=== PATIENT | male | born 1945 | race Caucasian/White ===

== ENCOUNTER 2019-07-14 09:43 | Emergency (ER) | payer SELFPAY ==
[~2019-07-14] VITALS: Ht 172.7 cm; Wt 69.9 kg
[2019-07-14 10:55] VITALS: BP 150/78
--- NOTE | 2019-07-14 11:35 | NUR ---
PT CALLED X 1 NO ANSWER
--- NOTE | 2019-07-14 12:11 | NUR ---
PT CALLED FOR ROOM, NO ANSWER X 3
== END 2019-07-14 12:13 | disposition home or self-care (01) ==
LOC: ED 12:02
DX: F03.90 Unspecified dementia, unspecified severity, without behavioral disturbance, psychotic disturbance, mood disturbance, and anxiety (principal); Z76.0 Encounter for issue of repeat prescription
CPT/HCPCS: 99281

== ENCOUNTER 2019-10-24 18:23 | Emergency (ER) | payer OTHER ==
[~2019-10-24] VITALS: Ht 170.2 cm; Wt 67.7 kg
--- NOTE | 2019-10-24 18:59 | NUR ---
PER PT, HI'ED FROM [facility] TODAY. UNABLE TO DISCUSS WHAT REASON FOR VISIT WAS. [employer]. PLEASANT WITH STAFF. TALKS ABOUT BODY LICE, MAIN COMPLAINT AT THIS TIME THAT HE ITCHES. PT ALSO ABLE TO DISCUSS AT LENGTH HISTORY OF RECREATIONAL DRUG USE, INCLUDING VARIOUS "TRIPS" WHEN PT WOULD AWAKEN IN DIFFERENT CITIES. PT DENIES USING RECREATIONAL DRUGS PRESENTLY.
[2019-10-24] MEDS ORDERED: DOXAZOSIN PO (19:02)
--- NOTE | 2019-10-24 19:08 | NUR ---
REPORT TO DANIEL NOLAN. EKG UNDERWAY CURRENTLY.
--- NOTE | 2019-10-24 20:06 | NUR ---
PT RESTING COMFORTABLY. AWAITING RECORDS FROM [facility]. MONITOR IN PLACE. PT C/O INTERMITTENT ITCHING FROM POSSIBLE LICE INFESTATION. PROVIDER AWARE.
--- NOTE | 2019-10-24 20:23 | NUR ---
Report received from DANIEL Andre. This RN to assume care.
[2019-10-24 20:46] VITALS: BP 135/76
--- NOTE | 2019-10-24 21:16 | NUR ---
Discharge instructions given. All questions and concerns addressed. Patient ambulatory with a steady gait. Belongings with patient.
== END 2019-10-24 21:18 | disposition home or self-care (01) ==
LOC: ED 19:15
DX: B86 Scabies (principal); R94.31 Abnormal electrocardiogram [ECG] [EKG]
CPT/HCPCS: 93005; 99283